=== PATIENT | female | born 1950 | race Caucasian/White ===

== ENCOUNTER 2016-12-06 07:03 | Observation (INO) | payer OTHER ==
[~2016-12-06] VITALS: Ht 162.6 cm; Wt 82.6 kg
[2016-12-06] MEDS ORDERED: ASPIRIN 324 MG CHEW PO STA (07:11)
[2016-12-06] MEDS ORDERED: LORAZEPAM 2 MG/ML 1 ML VIAL IV STA (07:11)
[2016-12-06] MEDS ORDERED: SODIUM CHLORIDE 0.9% 1000ML 1,000 ML IV STA (07:16)
[2016-12-06] MEDS ORDERED: NovoLIN-R INSULIN PER UNIT CHARGE IV STA (07:16)
--- NOTE | 2016-12-06 07:24 | EMERGENCY ROOM VISIT NOTE ---
History Report prepared by All: Lukas Martinez Under the Supervision of: Dr. Tarik Mc M.D. First contact with patient: 07:04 Stated Complaint: ANXIETY History of Present Illness The patient is a 66 year old female who presents to the Emergency Room with an acute anxiety attack that started at approximately 0530 this morning. The patient was on a bus from [place] to [place] when the patient became severely anxious. She notes that she had crushing chest pain starting at 0533. She has also been feeling nauseous. The patient was in [place] for her grandson's elementary school graduation. Her daughter reportedly told her not to come to the graduation. The patient also notes that her son Thomas is in [facility]. The patient's daughter allegedly put out a missing person's report on her. The patient has been anxious before. She is also medicated for depression. The patient has a history of suicidal ideations but denies them currently. The patient was admitted as an inpatient after buying a gun with the intent to end her own life three months ago. She denies history of heart attack. The patient is diabetic and notes that her BSG usually runs in the 400-500 range. Source of History: patient Onset: 0530 approximately Position: other (global) Quality: other (anxiety attack) Timing: other (acute) Associated Symptoms: + chest pain, + nausea Review of Systems See HPI for pertinent positives & negatives. A total of 10 systems reviewed and were otherwise negative. Current/Historical Medications Scheduled Aspirin (Aspir-81), 1 TAB PO DAILY Citalopram Hydrobromide (Celexa), 10 MG PO DAILY Glipizide (Glucotrol), 10 MG PO BID Insulin Detemir (Levemir), 70 UNITS SQ BID Lisinopril (Zestril), 10 MG PO DAILY Ranitidine HCl (Ranitidine [address]), 1 TAB PO BID Allergies Coded Allergies: No Known Allergies (Unverified , 12/06/16) Physical Exam Vital Signs Date Time Temp Pulse Resp B/P Pulse Ox O2 Delivery O2 Flow Rate FiO2 12/06/16 09:06 81 18 124/73 93 Room Air 12/06/16 08:03 85 20 122/66 97 Room Air 12/06/16 07:54 80 12/06/16 07:42 82 20 163/83 96 Room Air 12/06/16 07:12 37.0 79 24 157/112 94 Room Air 12/06/16 07:12 94 Room Air 12/06/16 07:12 94 Room Air Physical Exam GENERAL: Patient is severely anxious-appearing, sobbing uncontrollably. HEENT: No acute trauma, normocephalic atraumatic, mucous membranes moist, no nasal congestion, no scleral icterus. NECK: No stridor, no adenopathy, no meningismus, trachea is midline. LUNGS: No dyspnea. Clear to auscultation and equal bilaterally. No wheeze, no rhonchi. HEART: Regular rate and rhythm. No murmurs, rubs, gallops appreciated. ABDOMEN: Soft, nontender, bowel sounds positive, no masses appreciated, no peritonitis. BACK: No midline tenderness, no CVA tenderness EXTREMITIES: Normal motion all extremities, no cyanosis, no edema. NEUROLOGIC: Alert and oriented, no acute motor or sensory deficits, no focal weakness, cranial nerves grossly intact. SKIN: No jaundice, no diaphoresis. Small areas of sores all over the lower abdomen. PSYCH: Admits depression, admits to previous suicidal ideations without current ideations or plan. Medical Decision & Procedures Laboratory Results 12/06/16 07:25 Red Blood Count 4.31, Mean Corpuscular Volume 94.4, Mean Corpuscular Hemoglobin 31.6, Mean Corpuscular Hemoglobin Concent 33.4, Mean Platelet Volume 11.9, Neutrophils (%) (Auto) 61.8, Lymphocytes (%) (Auto) 29.3, Monocytes (%) (Auto) 7.4, Eosinophils (%) (Auto) 1.1, Basophils (%) (Auto) 0.2, Neutrophils # (Auto) 2.91, Lymphocytes # (Auto) 1.38, Monocytes # (Auto) 0.35, Eosinophils # (Auto) 0.05, Basophils # (Auto) 0.01 12/06/16 07:25 Test 12/06/16 07:25 12/06/16 07:34 White Blood Count 4.71 K/uL (4.8-10.8) Red Blood Count 4.31 M/uL (4.2-5.4) Hemoglobin 13.6 g/dL (12.0-16.0) Hematocrit 40.7 % (37-47) Mean Corpuscular Volume 94.4 fL (80-100) Mean Corpuscular Hemoglobin 31.6 pg (25-34) Mean Corpuscular Hemoglobin Concent 33.4 g/dl (32-36) Platelet Count 148 K/uL (130-400) Mean Platelet Volume 11.9 fL (7.4-10.4) Neutrophils (%) (Auto) 61.8 % Lymphocytes (%) (Auto) 29.3 % Monocytes (%) (Auto) 7.4 % Eosinophils (%) (Auto) 1.1 % Basophils (%) (Auto) 0.2 % Neutrophils # (Auto) 2.91 K/uL (1.4-6.5) Lymphocytes # (Auto) 1.38 K/uL (1.2-3.4) Monocytes # (Auto) 0.35 K/uL (0.11-0.59) Eosinophils # (Auto) 0.05 K/uL (0-0.5) Basophils # (Auto) 0.01 K/uL (0-0.2) RDW Standard Deviation 45.8 fL (36.4-46.3) RDW Coefficient of Variation 13.2 % (11.5-14.5) Immature Granulocyte % (Auto) 0.2 % Immature Granulocyte # (Auto) 0.01 K/uL (0.00-0.02) Prothrombin Time 10.0 SECONDS (9.0-12.0) Prothromb Time International Ratio 0.9 (0.9-1.1) Activated Partial Thromboplast Time 27.4 SECONDS (21.0-31.0) Partial Thromboplastin Ratio 1.1 Anion Gap 6.0 mmol/L (3-11) Est Creatinine Clear Calc Drug Dose 73.9 ml/min Estimated GFR () 90.3 Estimated GFR (Non- 77.9 BUN/Creatinine Ratio 20.4 (10-20) Estimated Average Glucose 263 mg/dl Hemoglobin A1c 10.8 % (4.5-5.6) Calcium Level 9.1 mg/dl (8.5-10.1) Total Bilirubin 0.4 mg/dl (0.2-1) Aspartate Amino Transf (AST/SGOT) 10 U/L (15-37) Alanine Aminotransferase (ALT/SGPT) 24 U/L (12-78) Alkaline Phosphatase 154 U/L (45-117) Total Creatine Kinase 84 U/L (26-192) Creatine Kinase MB 1.7 ng/ml (0.5-3.6) Creatine Kinase MB Ratio 2.0 (0-3.0) Total Protein 7.4 gm/dl (6.4-8.2) Albumin 3.6 gm/dl (3.4-5.0) Globulin 3.8 gm/dl (2.5-4.0) Albumin/Globulin Ratio 0.9 (0.9-2) Triglycerides Level 160 mg/dl (0-150) Cholesterol Level 102 mg/dl (0-200) HDL Cholesterol 51 mg/dl LDL Cholesterol, Calculated 19 mg/dl VLDL Cholesterol, Calculated 32 mg/dl Cholesterol/HDL Ratio 2.0 Beta-Hydroxybutyric Acid 0.93 mg/dL (0.2-2.81) Thyroid Stimulating Hormone (TSH) 0.396 uIu/ml (0.300-4.500) Salicylates Level < 1.7 mg/dl (2.8-20) Acetaminophen Level < 2 ug/ml (10-30) Ethyl Alcohol mg/dL < 3.0 mg/dl (0-3) Urine Color YELLOW Urine Appearance CLEAR (CLEAR) Urine pH 5.0 (4.5-7.5) Urine Specific [place] 1.043 (1.000-1.030) Urine Protein NEG (NEG) Urine Glucose (UA) 3+ (NEG) Urine Ketones NEG (NEG) Urine Occult Blood NEG (NEG) Urine Nitrite NEG (NEG) Urine Bilirubin NEG (NEG) Urine Urobilinogen NEG (NEG) Urine Leukocyte Esterase NEG (NEG) Urine WBC (Auto) 5-10 /hpf (0-5) Urine RBC (Auto) 0-4 /hpf (0-4) Urine Hyaline Casts (Auto) 1-5 /lpf (0-5) Urine Epithelial Cells (Auto) 20-30 /lpf (0-5) Urine Bacteria (Auto) 1+ (NEG) Urine Opiates Screen NEG (NEG) Urine Methadone, Qualitative NEG (NEG) Urine Barbiturates NEG (NEG) Urine Phencyclidine (PCP) Level NEG (NEG) Ur Amphetamine/Methamphetamine NEG (NEG) MDMA (Ecstasy) Screen NEG (NEG) Urine Benzodiazepines Screen NEG (NEG) Urine Cocaine Metabolite NEG (NEG) Urine Marijuana (THC) NEG (NEG) Laboratory results as reviewed by me. Medications Administered Medications (Trade) Dose Ordered Sig/Dione Route Start Time Stop Time Status Last Admin Dose Admin Lorazepam (Ativan Inj) 1 mg NOW STAT IV 12/06/16 07:11 12/06/16 07:13 DC 12/06/16 07:40 1 MG Aspirin 324 mg 324 mg NOW STAT PO 12/06/16 07:11 12/06/16 07:13 DC 12/06/16 07:38 324 MG Sodium Chloride (Nss 1000ml) 1,000 ml @ 999 mls/hr Q1H1M STAT IV 12/06/16 07:16 12/06/16 08:16 DC 12/06/16 07:32 999 MLS/HR Insulin Human Regular (novoLIN-R U-100 PER UNIT) 10 units NOW STAT IV 12/06/16 07:16 12/06/16 07:17 DC 12/06/16 07:39 10 UNITS ECG Indication: chest pain Rate (beats per minute): 93 Rhythm: normal sinus Findings: no acute ischemic change, no ectopy ED Course 0710: The patient was evaluated in room B11b. A complete history and physical exam was performed. 0711: Aspirin 324 mg PO, Ativan 1 mg IV. 0716: Insulin Human Regular 10 units IV, NSS 1000 ml @ 999 mls/hr. 0820: The patient is sleeping in no further discomfort. 0900: The patient is still sleeping comfortably. 0910: The patient is now concerned that she may harm herself but she does not have a plan. She wants to be admitted to a psych facility. She denies any chest pain at this time. 0920: Discussed the case with Dr. Plummer, [facility] Hospitalist. The patient will be evaluated. Medical Decision Differential: Mood Disorder, Overdose, Infectious, Electrolyte Abnormality, Cardiac, Hepatic, Endocrine, Toxicologic, Neurologic, amongst other pathologies entertained. 66 yr old female unknown to this facility as she was on bus passing through on was from [place] to [place]. She is sobbing uncontrollably talking about not being allowed to see her grandchildren and her son being in half-way for child molestation. She initially denies suicidal ideation, though admits severe depression, previous suicide attempts and recent hospitalization. On arrival complaining of severe substernal chest pressure. EKG unremarkable. Trop negative. Patient given ativan/asa with resolution of pain. Also with resolution of crying. Fell asleep though easily awoken on multiple times. She on repeat evaluation noting she wishes to be evaluated by mental health. She admits she may have suicidal thoughts without plan currently. With Chest pain, hyperglycemia, and vague suicidal thoughts, especially given her arrival symptoms and fact she has no local physician, is traveling and no family help, she should be brought in for further evaluation and treatment. Consults Time Called: [phone] Consulting Physician: Dr. Plummer [facility] Hospitalist Returned Call: [phone] The patient will be evaluated. Impression Primary Impression: Substernal precordial chest pain Additional Impressions: Depression Suicidal ideation Anxiety Scribe Attestation The scribe's documentation has been prepared under my direction and personally reviewed by me in its entirety. I confirm that the note above accurately reflects all work, treatment, procedures, and medical decision making performed by me. Departure Information Dispostion Being Evaluated By Hospitalist Problem Qualifiers Additional Impressions: Depression Depression Type: major depressive disorder Major depression recurrence: recurrent Active/Remission status: currently active Major depression episode severity: severe Psychotic features: without psychotic features Qualified Codes: F33.2 - Major depressive disorder, recurrent severe without psychotic features
[2016-12-06] MEDS ORDERED: ASPI-232 PO (07:48)
[2016-12-06] MEDS ORDERED: GLIP10TA9 PO (07:48)
[2016-12-06] MEDS ORDERED: LVMI SQ (07:48)
[2016-12-06] MEDS ORDERED: RANI1TAB77 PO (07:48)
[2016-12-06] MEDS ORDERED: LISI-791 PO (07:48)
[2016-12-06] MEDS ORDERED: CITA10TA8 PO (07:48)
[2016-12-06 07:55] LABS: URINE APPEARANCE CLEAR (CLEAR); URINE BILIRUBIN NEG (NEG); URINE COLOR YELLOW; URINE EPITHELIAL CELL AUTO 20-30 /lpf (0-5); URINE NITRITE NEG (NEG); URINE SPECIFIC GRAVITY 1.043 (1.000-1.030); UROBILINOGEN NEG (NEG); ZZUR CULT IF INDIC CLEAN CATCH YES
[2016-12-06 07:56] LABS: MANUAL MICROSCOPIC REQUIRED? NO; REVIEW REQ? NO
[2016-12-06 08:08] LABS: BASO % 0.2 %; BASO ABS # 0.01 K/uL (0-0.2); COMPLETE YES; EOS % 1.1 %; HEMATOCRIT 40.7 % (37-47); IG% 0.2 %; LYMPH % 29.3 %; LYMPH ABS # 1.38 K/uL (1.2-3.4); MEAN CELL VOLUME 94.4 fL (80-100); MEAN CORPUSCULAR HEMOGLOBIN 31.6 pg (25-34); MEAN CORPUSCULAR HGB CONC 33.4 g/dl (32-36); MEAN PLATELET VOLUME 11.9 fL (7.4-10.4); MONO % 7.4 %; NEUT % 61.8 %; PLATELET COUNT 148 K/uL (130-400); RED BLOOD COUNT 4.31 M/uL (4.2-5.4); WHITE BLOOD COUNT 4.71 K/uL (4.8-10.8)
[2016-12-06 08:14] LABS: BENZODIAZEPINE, URINE NEG (NEG); COCAINE,URINE NEG (NEG); PHENCYCLIDINE, URINE NEG (NEG)
[2016-12-06 08:43] LABS: ALT/SGPT 24 U/L (12-78); AST/SGOT 10 U/L (15-37); BLOOD UREA NITROGEN 16 mg/dl (7-18); BUN/CREATININE RATIO 20.4 (10-20); CALCIUM 9.1 mg/dl (8.5-10.1); CARBON DIOXIDE 29 mmol/L (21-32); CHLORIDE 104 mmol/L (98-107); GLUCOSE 474 mg/dl (70-99); POTASSIUM 4.1 mmol/L (3.5-5.1); SODIUM 139 mmol/L (136-145)
[2016-12-06 08:45] LABS: ACETAMINOPHEN < 2 ug/ml (10-30)
[2016-12-06 08:51] LABS: ALB/GLOB RATIO 0.9 (0.9-2); ALKALINE PHOSPHATASE 154 U/L (45-117)
[2016-12-06 09:02] LABS: BETA-HYDROXYBUTYRATE 0.93 mg/dL (0.2-2.81); THYROID STIMULATING HORMONE 0.396 uIu/ml (0.300-4.500)
[2016-12-06] MEDS ORDERED: MAGNESIUM HYDROXIDE SUSP 30 ML UDC PO PRN (09:45)
[2016-12-06] MEDS ORDERED: ONDANSETRON INJ 2 MG/ML 2 ML VIAL IV PRN (09:45)
[2016-12-06] MEDS ORDERED: NITROGLYCERIN 0.4 MG SL PER TAB CHARGE SL PRN (09:45)
[2016-12-06] MEDS ORDERED: ACETAMINOPHEN 325 MG TAB PO PRN (09:45)
--- NOTE | 2016-12-06 10:08 | History and Physical ---
History & Physical Date & Time of Service: December 06, 2016 at 09:44 Chief Complaint: Anxiety Primary Care Physician: No Doctor, Assigned History of Present Illness Source: hospital records 66 y/o F who was apparently brought here via a bus that she was traveling on from [place] to [place] after she complained of chest pain around 5:30am. I am not able to keep pt awake long enough to get more than brief answers from her after being given ativan, so most of the information is from the ED physician. Pt apparently has been under severe stress due to a son who is in [facility]. She went to [place] for her grandson's elementary school graduation. This morning she had an anxiety attack while riding on the bus and then started having chest pain that gradual worsened. Pt is unclear as to whether she is still having chest pain or whether she had chest pain yesterday. She does not answer when asked if there was SOB. She ate yesterday. She had nausea last night, but unclear if she had nausea today. She took her insulin yesterday, but cannot tell me when or what dose. She apparently told the ED physician that her BS are usually 400- 500. Pt apparently requested a psych eval to the ED staff. They reported that she told them that she purchased a gun 3 months ago to end her life and was subsequently admitted for psych care for this. When I asked her if she felt like harming herself recently, she did not answer and I could not rouse her further. Per records: ROS otherwise neg, but I could not obtain this myself. Past Medical/Surgical History Per ED list: DM Depression HTN GERD Hx of recent SI with hospitalization for psych care Social History Smoking Status: Never Smoker Alcohol Use: occasionally (rarely) Drug Use: none Allergies Coded Allergies: No Known Allergies (Unverified , 12/06/16) Home Medications Scheduled Aspirin (Aspir-81), 1 TAB PO DAILY Citalopram Hydrobromide (Celexa), 10 MG PO DAILY Glipizide (Glucotrol), 10 MG PO BID Insulin Detemir (Levemir), 70 UNITS SQ BID Lisinopril (Zestril), 10 MG PO DAILY Ranitidine HCl (Ranitidine [address]), 1 TAB PO BID Physical Exam Vital Signs Date Time Temp Pulse Resp B/P Pulse Ox O2 Delivery O2 Flow Rate FiO2 12/06/16 09:06 81 18 124/73 93 Room Air 12/06/16 08:03 85 20 122/66 97 Room Air 12/06/16 07:54 80 12/06/16 07:42 82 20 163/83 96 Room Air 12/06/16 07:12 37.0 79 24 157/112 94 Room Air 12/06/16 07:12 94 Room Air 12/06/16 07:12 94 Room Air General Appearance: WD/WN, no apparent distress Head: normocephalic, atraumatic Respiratory/Chest: normal breath sounds, no respiratory distress Cardiovascular: regular rate, rhythm, no edema Abdomen/GI: non tender, soft Extremities/Musculoskelatal: no calf tenderness, no pedal edema Neurologic/Psych: + pertinent finding (Pt is barely rousable with physical stimulus, but does not stay awake for long, answers yes/no questions) Skin: normal color, warm/dry Diagnostics Laboratory Results Results Past 24 Hours Test 12/06/16 07:13 12/06/16 07:25 12/06/16 07:34 12/06/16 08:29 Range/Units Bedside Glucose 486 287 70-90 mg/dl White Blood Count 4.71 4.8-10.8 K/uL Red Blood Count 4.31 4.2-5.4 M/uL Hemoglobin 13.6 12.0-16.0 g/dL Hematocrit 40.7 37-47 % Mean Corpuscular Volume 94.4 80-100 fL Mean Corpuscular Hemoglobin 31.6 25-34 pg Mean Corpuscular Hemoglobin Concent 33.4 32-36 g/dl Platelet Count 148 130-400 K/uL Mean Platelet Volume 11.9 7.4-10.4 fL Neutrophils (%) (Auto) 61.8 % Lymphocytes (%) (Auto) 29.3 % Monocytes (%) (Auto) 7.4 % Eosinophils (%) (Auto) 1.1 % Basophils (%) (Auto) 0.2 % Neutrophils # (Auto) 2.91 1.4-6.5 K/uL Lymphocytes # (Auto) 1.38 1.2-3.4 K/uL Monocytes # (Auto) 0.35 0.11-0.59 K/uL Eosinophils # (Auto) 0.05 0-0.5 K/uL Basophils # (Auto) 0.01 0-0.2 K/uL RDW Standard Deviation 45.8 36.4-46.3 fL RDW Coefficient of Variation 13.2 11.5-14.5 % Immature Granulocyte % (Auto) 0.2 % Immature Granulocyte # (Auto) 0.01 0.00-0.02 K/uL Sodium Level 139 136-145 mmol/L Potassium Level 4.1 3.5-5.1 mmol/L Chloride Level 104 98-107 mmol/L Carbon Dioxide Level 29 21-32 mmol/L Anion Gap 6.0 3-11 mmol/L Blood Urea Nitrogen 16 7-18 mg/dl Creatinine 0.80 0.60-1.20 mg/dl Est Creatinine Clear Calc Drug Dose 73.9 ml/min Estimated GFR () 90.3 Estimated GFR (Non- 77.9 BUN/Creatinine Ratio 20.4 10-20 Random Glucose 474 70-99 mg/dl Calcium Level 9.1 8.5-10.1 mg/dl Total Bilirubin 0.4 0.2-1 mg/dl Aspartate Amino Transf (AST/SGOT) 10 15-37 U/L Alanine Aminotransferase (ALT/SGPT) 24 12-78 U/L Alkaline Phosphatase 154 45-117 U/L Total Creatine Kinase 84 26-192 U/L Creatine Kinase MB 1.7 0.5-3.6 ng/ml Creatine Kinase MB Ratio 2.0 0-3.0 Troponin I < 0.015 0-0.045 ng/ml Total Protein 7.4 6.4-8.2 gm/dl Albumin 3.6 3.4-5.0 gm/dl Globulin 3.8 2.5-4.0 gm/dl Albumin/Globulin Ratio 0.9 0.9-2 Beta-Hydroxybutyric Acid 0.93 0.2-2.81 mg/dL Thyroid Stimulating Hormone (TSH) 0.396 0.300-4.500 uIu/ml Salicylates Level < 1.7 2.8-20 mg/dl Acetaminophen Level < 2 10-30 ug/ml Ethyl Alcohol mg/dL < 3.0 0-3 mg/dl Urine Color YELLOW Urine Appearance CLEAR CLEAR Urine pH 5.0 4.5-7.5 Urine Specific [place] 1.043 1.000-1.030 Urine Protein NEG NEG Urine Glucose (UA) 3+ NEG Urine Ketones NEG NEG Urine Occult Blood NEG NEG Urine Nitrite NEG NEG Urine Bilirubin NEG NEG Urine Urobilinogen NEG NEG Urine Leukocyte Esterase NEG NEG Urine WBC (Auto) 5-10 0-5 /hpf Urine RBC (Auto) 0-4 0-4 /hpf Urine Hyaline Casts (Auto) 1-5 0-5 /lpf Urine Epithelial Cells (Auto) 20-30 0-5 /lpf Urine Bacteria (Auto) 1+ NEG Urine Opiates Screen NEG NEG Urine Methadone, Qualitative NEG NEG Urine Barbiturates NEG NEG Urine Phencyclidine (PCP) Level NEG NEG Ur Amphetamine/Methamphetamine NEG NEG MDMA (Ecstasy) Screen NEG NEG Urine Benzodiazepines Screen NEG NEG Urine Cocaine Metabolite NEG NEG Urine Marijuana (THC) NEG NEG Microbiology Results 12/06/16 Urine Culture, Received Pending Impression Assessment and Plan 66 y/o F who was admitted for observation on 12/06 for chest pain and SI. Chest pain: Likely stress/anxiety related but pt with hx of uncontrolled DM, will need to r/o ACS Trop neg x1, serials pending No EKG changes PRP, CBC, TSH WNL Utox and UA neg with urine cx pending CXR not done in the ED, no s/sx concerning for PNA or fluid overload and unlikely that pt will awaken to participate. Can order later if a concern Nitro PRN DM: Poor control, was given insulin in the ED for hyperglycemia Neg for electrolyte abn, will hold on insulin drip/DKA protocol for now Home meds as per EMR once taking PO, pt could not confirm this to me SSI PRN IVF HTN: Stable, continue home meds Anxiety/depression/SI: pt appears oversedated s/p single dose of ativan in the ED, will hold on further Apparently requested psych eval to ED staff, c/s pending Recent hx of hospitalization for SI Continue celexa Other: Unable to discuss code status with pt NPO with IVF for now given current sedation, DM diet once more awake Heparin for DVT proph Level of Care Telemetry VTE Prophylaxis VTE Risk Assessment Done? Y/N: Yes Risk Level: Low
[2016-12-06 10:42] LABS: ESTIMATED AVERAGE GLUCOSE 263 mg/dl; HA1C FLAG Normal (Normal)
[2016-12-06 11:26] VITALS: BP 131/67; TEMP 37; O2SAT 94; BMI 31.3
[2016-12-06] MEDS ORDERED: GLUCAGON FOR INJ 1 MG VIAL SQ PRN (12:15)
[2016-12-06] MEDS ORDERED: GLUCOSE 40% GEL 15 GM TUBE PO PRN (12:15)
[2016-12-06] MEDS ORDERED: DEXTROSE 50% 50 ML SYR IV PRN (12:15)
[2016-12-06] MEDS ORDERED: GLUCOSE 10 TABS/TUBE PO PRN (12:15)
[2016-12-06 12:39] LABS: INR 0.9 (0.9-1.1); PARTIAL THROMBOPLASTIN RATIO 1.1
[2016-12-06] MEDS: SODIUM CHLORIDE 0.9% 1000ML 1,000 ML IV SCH (13:01)
[2016-12-06] MEDS: INSULIN ASPART 100 UNITS/ML 3 ML PEN SC SCH ×3 (13:14→21:28)
[2016-12-06] MEDS ORDERED: IV FLUIDS COMPLETED PRN (14:00)
[2016-12-06 14:51] VITALS: BP 149/81; PULSE 79; TEMP 36.7; O2SAT 96
[2016-12-06 16:00] VITALS: O2SAT 96
--- NOTE | 2016-12-06 18:58 | Psychiatric Consultation ---
Psychiatric Consultation Date of Service: December 06, 2016. Pt having acute anxiety and attempted to see pt for psych consult pt sound asleep after having acute anxiety and will try to see pt again in morning, opposed to awakening her since just had severe acute anxiety spoke to psych nurse liaison who summarized pt's presentation and to floor nurse who reviewed the acute anxiety presentation, nurse stated that pt stated was hallucinating, pt went to write it down then stopped and then went to sleep. pt was quite sedated from 1 mg of IM ativan while in ER. ordered vistaril 25mg q6 hour for anxiety if acute severe anxiety flares back up with behavioral management to be attempted first. will attempt to see again in morning
[2016-12-06] MEDS ORDERED: hydrOXYzine HCL 25 MG TAB PO PRN (19:00)
[2016-12-06 19:50] VITALS: BP 144/85; PULSE 77; TEMP 37; O2SAT 94
[2016-12-06] MEDS ORDERED: INSULIN DETEMIR 70 UNIT SQ SCH (21:00)
[2016-12-06] MEDS: RANITIDINE HCL 150 MG TAB PO SCH (21:29)
[2016-12-06] MEDS: HEPARIN SOD 5000 UNIT/0.5 ML CARP SQ SCH (21:29)
[2016-12-07] VITALS (8 sets, daily range): BP systolic 124–152; BP diastolic 74–90; PULSE 66–88; TEMP 36.3–36.9; O2SAT 93–98
[2016-12-07] MEDS: SODIUM CHLORIDE 0.9% 1000ML 1,000 ML IV SCH ×2 (01:29→15:58)
[2016-12-07] MEDS ORDERED: NURSING VERBAL MED ORDER ONE (02:00)
[2016-12-07] MEDS: INSULIN ASPART 100 UNITS/ML 3 ML PEN SC SCH ×6 (02:48→21:55)
[2016-12-07] MEDS: RANITIDINE HCL 150 MG TAB PO SCH ×2 (08:15→17:55)
[2016-12-07] MEDS: CITALOPRAM 20 MG TAB PO SCH (08:15)
[2016-12-07] MEDS: LISINOPRIL 10 MG TAB PO SCH (08:15)
[2016-12-07] MEDS: ASPIRIN 81 MG ECTAB PO SCH (08:16)
[2016-12-07] MEDS: HEPARIN SOD 5000 UNIT/0.5 ML CARP SQ SCH ×2 (08:16→21:00)
[2016-12-07] MEDS ORDERED: INSULIN GLARGINE SOLOSTAR 100 UNITS/ML 3 ML PEN SC ONE ×3 (09:01→21:00)
--- NOTE | 2016-12-07 10:22 | Psychiatric Consultation ---
Consultation Date of Consultation December 07, 2016. Identifying Data Valentina Sanchez is a 66-year-old female who currently lives in [] [alone] with []. Valentina Sanchez was admitted on a [201 voluntary] [302 involuntary] commitment. Patient is admitted from [home] [transfer from the medical floor]. The patient was brought to the ED by the [police] [family] [ambulance] [self transport]. Information provided by the patient is considered to be [reliable] [unreliable]. Chief Complaint "I can't take it anymore". History of Present Illness Valentina was admitted medically for chest pain as was travelling from [place] to [place] after visiting her estrangled son for his graduation. She has DM that is uncontrolled and HTN She reports h/o depressive disorder with treatment with celexa at either 10mg or 20mg a day. She has been rx'd it for years per pt but has varied in her compliance of taking it per pt report. However since July 2016 she has taken it most day, but not always. She has had a psychiatric admission around [facility] (October 2016) at her local [facility] in [place]. She reprots seeing a therapist weekly and appears to have a psychiatric provider rx her Celexa but she cannot recall the name of the outpt provider, stating the name she provided was her recent inpt provider. Her hospitalization in October 2016 was for SI per pt. She had been having SI rather significantly in the past few months and had bought a gun about 3 month ago with intention to kill herself. She denied having access to a gun now [facility] from her access. She endorsed a number of past suicide attempts in the past including walking into the traffic (not in recent past). She is agitated, labile in mood and affect. Her thought process and behaviors are disorganized. She is distressed over founding out the other day that her son is going to detention for 10-12 years over a sexual assault charge, per pt. She had not previously spoke ot he son in about 2 years. This morning she called 911 from her hospital room with her stating she wanted to address and better understand these charges. Pt is circumstantial and tangential in her thought process. She describes seeing people she know by her bedside since being admitted. She has a grandiose aspects to her present and some pressured speech. She denied having h/ o bipolar or psychotic presentations. She states she was tested for schizophrenia but told she doesn ot have that and that she passed psychological testing that took a number of hours with "flying colors" besides struggling some when angry. Pt denied HI. She denied AH. She denied paranoid thinking. Pt's blood sugar was quite elevated at admission and only gradually improving so far in her medical admission. She is open to and interested in a psychiatric admission with desire to be at [facility] unit. She has a wish to but denied plans or intent to act on such thoughts. After assessment completed she reported calling the [facility] in [place] and being told by a Re (TARAN) that she can get admitted there but not till Thursday per pt. Pt plans to call a "back door number" to the [facility] to clarify her celexa med dose. Past Psychiatric History Current OP Treatment: psychiatrist, therapist Prior OP Treatment: psychiatrist Prior Psych Hospitalizations: other ([facility] in - october 2016, total of about 7 admissions per pt ) Access to a Gun: No Suicide Attempts: Yes Past Medical/Surgical History History of Concussion/Seizure: Yes (1 Concussion years ago ) Allergies Allergies: Coded Allergies: No Known Allergies (Unverified , 12/06/16) Home Medications Scheduled Aspirin (Aspir-81), 1 TAB PO DAILY Citalopram Hydrobromide (Celexa), 10 MG PO DAILY Glipizide (Glucotrol), 10 MG PO BID Insulin Detemir (Levemir), 70 UNITS SQ BID Lisinopril (Zestril), 10 MG PO DAILY Ranitidine HCl (Ranitidine [address]), 1 TAB PO BID Family History History of Suicide: No History of Substance Abuse: No Psychiatric History: No Alcohol Use Alcohol Use In Past 12 Months: No Smoking Use Smoking Status: Never Smoker Personal History Lives in: [facility] Work History: retired on social security, not working Children: estranged from children Spiritual Affiliation: Moravian Additional Comments: [employer] Examination Vital Signs Vital Signs Past 12 Hours Date Time Temp Pulse Resp B/P Pulse Ox O2 Delivery O2 Flow Rate FiO2 12/07/16 07:11 36.9 76 20 152/90 98 Room Air 135/84 12/07/16 04:44 36.6 66 18 128/78 96 Room Air 12/07/16 04:00 Room Air 12/07/16 00:16 36.6 72 18 138/76 93 Room Air 12/07/16 00:00 Room Air Laboratory Results Last 24 Hours Test 12/06/16 10:16 12/06/16 12:46 12/06/16 13:05 12/06/16 16:52 Bedside Glucose 268 mg/dl 267 mg/dl 329 mg/dl Troponin I < 0.015 ng/ml Test 12/06/16 19:00 12/06/16 20:27 12/07/16 01:39 12/07/16 07:25 Troponin I < 0.015 ng/ml Bedside Glucose 284 mg/dl 343 mg/dl 203 mg/dl Mental Examination During interview pt is: alert and oriented (date of month off by one day), other (mildly cooeprative but frustrated by publicity writer's questions) Appearance: other (hospital gown) Eye contact is: poor Motor behavior is: no abnormal motor movements (laying in hospital bed), other Speech: is pressured Affect: labile, irritable Mood is: irritable, angry, other (labile) Thought process: circumstantial, tangential Thought content: preoccupation, cognitive distortions Suicidal thought are: present, Plan: denied, Intent: denied Homicidal thoughts are: denied Hallucinations: visual, denies auditory Cognition: other (attention and concentration impaired) Intelligence estimated to be: average Insight: impaired Judgement: impaired Impression / Recommendations Impression Reported Depression Disorder and h/o psych admissions last October 2016 At [facility] in [place] with labile mood, pressured speech, SI but without plan, struggling with psychosocial stressors of finding out son huerta legal charges and facing 10-12 years in residential per pt over a sexual assault charge. Pt makes suicidal comments including showing dress bought last week to be buried in. with also having disorganized behavior and thinking. Endorsed V[facility]. h/o suicidal behaviors DM not in controlled, admitted for CP. pt open to inpt psych care at [facility] on celexa Risk Factors Assessment : Yes Access to guns: No Substance use disorders: No Previous attempt: Yes Previous psychiatric stay: Yes Hopelessness: Yes Smoker: No Protective Factors Assessment Quaker beliefs: Yes Responsible for young children: No Supportive family: No Recommendations (1) Depression continue celexa 10mg a day for now exploring for mixed presentation so raising dosage might activate pt further vistaril 25mg prn 6 hours for anxiety/insomnia aim for inpt psych admission once medically cleared , [facility] (2) Suicidal ideation aim for psych admission once medically cleared attempting to be [facility] hospital based 1:1 sitter have nursing and security present with pt as go through belongings
--- NOTE | 2016-12-07 12:16 | DIAGNOSTIC IMAGING REPORT ---
CHEST 2 VIEWS ROUTINE CLINICAL HISTORY: Chest pain. COMPARISON STUDY: No previous studies for comparison. FINDINGS: There are cholecystectomy clips. Lung volumes are normal. There is no pneumothorax or pleural effusion. There is no evidence of pulmonary edema. Cardiac size is normal. Mediastinal contours are normal. There is a 1.6 cm nodular opacity within the right upper lung. IMPRESSION: 1. No acute cardiopulmonary findings. 2. 1.6 cm nodular right upper lung opacity. This is probably artifactual although a pulmonary nodule or minimal airspace disease could appear similar. A chest CT is recommended. Electronically signed by: Alonso aGrza M.D. 12/07/2016 12:15 PM Dictated Date/Time: 12/07/2016 12:03 PM
[2016-12-07] MEDS ORDERED: OPTIRAY 320 IV PRN (13:00)
[2016-12-07] MEDS ORDERED: PHARMACY GLYCEMIC MGMT CONSULT PRN (13:14)
--- NOTE | 2016-12-07 13:55 | Pharmacy Progress Note ---
Glycemic Control Intl Consult Date of Service December 07, 2016. Scope Glycemic Pharmacist consulted by Dr Caldwell on 12/07/16 for glycemic control and to write orders per [facility] inpatient glycemic control protocol Objective Weight (Kilograms): 82.400 Accuchecks BSG (last 24hrs): Test 12/06/16 16:52 12/06/16 20:27 12/07/16 01:39 12/07/16 07:25 Bedside Glucose 329 mg/dl (70-90) 284 mg/dl (70-90) 343 mg/dl (70-90) 203 mg/dl (70-90) Test 12/07/16 11:41 Bedside Glucose 362 mg/dl (70-90) HbA1c Test 12/06/16 07:25 Hemoglobin A1c 10.8 % (4.5-5.6) H Recent Pertinent Medications Outpatient Anti-diabetic Regimen: (unable to confirm) * Levemir 70 units SQ BID * Glipizide 10mg PO BIDM The patient is currently receiving: * Basal insulin: Lantus 10 units every 24 hours given in the morning * Correctional Insulin: Novolog Correction per scale ACHS Goal Range: Low 120 mg/dL - High 140 mg/dL Correction Factor: 30 mg/dL/unit * Prandial insulin: Per carb ratio of 1 unit per 9 grams CHO consumed * Oral Agents: On hold for admission Risk Factors for Insulin Resistance: * Baseline poor control * Stress * Diet Assessment & Plan ASSESSMENT: * 66yo T2DM with poor degree of outpatient control per A1c * Pt reports taking large doses of basal insulin + glipizide but unable to confirm if this is accurate. Referenced external med history and dr dumont without any results. * Unsure if A1c elevated secondary to inadequate dosing vs compliance * Do not feel comfortable resuming reported outpatient dosing at this time as this may induce hypoglycemia if pt non-compliant as an outpatient. * Will start with aggressive weight based SQ basal bolus insulin regimen and titrate based on BSG trends * ADA & AACE recommend a goal blood sugar range 140-180 mg/dl for the majority of critically ill & non-critically ill patients. However, more stringent targets may be selected in individual cases. Will utilize slightly more stringent goal range of 120-140mg/dl as ordered by provider based on age. PLAN FOR INPATIENT GLYCEMIC CONTROL: * Hold outpatient oral diabetes medications * Oral agents are not recommended for inpatient use d/t drug interactions, changing PO intake, and difficulty titrating for acute hyper/hypoglycemia. ADA recommends re-initiating outpatient oral agents 1-2 days prior to discharge if/ when appropriate if they were held on admission. * Basal insulin: per weight & st = 3 * Lantus 40 units SQ daily * Titrate dose daily to maintain fasting BSG in 100-130mg/dl range * of note, pt reports using 70 units BID as an outpatient so this may be underdosing patient initially. * Bolus insulin: parameters per wt & st =3 * NovoLog per scale ACHS or Q6hrs while NPO. Additional checks + coverage at 0000 & 0400 for severe hyperglycemia. Additional coverage may be needed if basal insulin dosing is underdosed. * Goal Range: Low 120 mg/dL - High 140 mg/dL * Correction Factor: 20 mg/dL/unit * Nutritional / Prandial insulin per carb ratio of 1 unit per 7 grams CHO consumed * Please note that the plan above was derived based on current level of insulin resistance and hospital stress. These recommendations are appropriate for inpatient admission only. Plan of care upon discharge will need to be reassessed to avoid potential outpatient hypo/hyperglycemia. Thank you.
--- NOTE | 2016-12-07 14:42 | DIAGNOSTIC IMAGING REPORT ---
CT OF THE CHEST WITH IV CONTRAST CLINICAL HISTORY: 1.6 cm nodule seen on CXR COMPARISON STUDY: Chest radiograph performed earlier today. TECHNIQUE: Following IV administration of 94 mL of Optiray-320, helical axial images of the chest were obtained. Images were viewed in the axial, sagittal and coronal planes. IV contrast was administered without complication. CT DOSE: 335.13 mGy.cm FINDINGS: No enlarged axillary, mediastinal or hilar lymph nodes are present. The size of the heart is normal. There is no pericardial effusion. Central airways are patent. There is no pneumothorax or pleural effusion. There are minimal scattered tree-in-bud nodules, most evident within the right lower lobe. There is an 8 mm irregular subpleural nodule within the right lower lobe which is shown on image 183 of 256. The possible lung nodule shown within the right upper lung on prior chest radiograph may be due to minimal tree-in-bud opacities or artifact. Bony thorax and upper abdomen are unremarkable. IMPRESSION: 1. Scattered minimal tree-in-bud nodular opacities within the lungs which favor a mild infectious bronchiolitis. No consolidation to suggest pneumonia. 2. 8 mm irregular subpleural opacity within the right lower lobe. This finding is indeterminate and this could reflect an irregular pulmonary nodule, minimal airspace disease or atelectasis. A follow-up chest CT in 3 months is recommended to ensure resolution. 3. The 1.6 cm nodular opacity shown on prior chest radiograph was likely artifactual or related to minimal tree-in-bud opacities. Electronically signed by: Alonso Garza M.D. 12/07/2016 2:40 PM Dictated Date/Time: 12/07/2016 2:32 PM
[2016-12-07] MEDS ORDERED: AZITHROMYCIN 250 MG TAB PO ONE (17:30)
--- NOTE | 2016-12-07 21:04 | Hospitalist Progress Note ---
Hospitalist Progress Note Date of Service December 07, 2016. Subjective Pt evaluation today including: conversation w/ patient Patient remains severely anxious today. She is very distraught over the fact that her son was convicted for sexual systolic child and is going to snf for 10 years. She is very emotional and tearful throughout the 3 times a day as visited with her today on separate occasions. She is continuing to have intermittent chest pressure that only comes on when she is anxious and tearful. A chest x-ray showed possible nodule and CT of the chest was ordered-results reviewed with her. She told the RN that she brought a dressed with her that is the dressed that she would like to be buried in. She also admits that she had bought a gun 3 months ago with which to kill herself but then "threw it away" and stated that "I'll have to use scuba divers to find it." I had security check all of her bags for safety reasons and put her on a one-to-one. Discussed the case with psychiatry. Patient is inquiring about transferred to the [facility] in [place] for psychiatric treatment. She continues to complain of intermittent chest pressure that comes on when she is tearful and anxious. She reports she had a cardiac catheterization many years ago that showed no blockages Constitutional: No fever Eyes: + worsening of vision ENT: No problem reported Respiratory: + cough (for the last few weeks) Cardiovascular: + chest pain (intermittent) Abdomen: No pain Psychiatric: + anxiety, + depression symptoms, + problem reported ( currently denies suicidal or homicidal ideations, but reports that she has thought about suicide many times in the past) All Other Systems: Reviewed and Negative Objective Vital Signs Date Time Temp Pulse Resp B/P Pulse Ox O2 Delivery O2 Flow Rate FiO2 12/07/16 19:21 36.3 87 18 150/74 97 Room Air 12/07/16 16:00 94 Room Air 12/07/16 15:30 36.3 88 20 124/78 94 Room Air 12/07/16 12:00 96 Room Air 12/07/16 11:14 36.9 69 22 130/78 96 Room Air 12/07/16 07:11 36.9 76 20 152/90 98 Room Air 135/84 12/07/16 04:44 36.6 66 18 128/78 96 Room Air 12/07/16 04:00 Room Air 12/07/16 00:16 36.6 72 18 138/76 93 Room Air 12/07/16 00:00 Room Air Physical Exam General Appearance: WD/WN, + obese, + pertinent finding (very anxious and crying on multiple occasions) Eyes: normal inspection, sclerae normal ENT: hearing grossly normal, pharynx normal Neck: trachea midline Respiratory/Chest: lungs clear, normal breath sounds, no respiratory distress, no accessory muscle use Cardiovascular: regular rate, rhythm, no edema, no gallop, no murmur Abdomen: normal bowel sounds, non tender, soft Extremities: non-tender, normal inspection, no pedal edema, no calf tenderness Neurologic/Psychiatric: alert, oriented x 3, + depressed affect, + pertinent finding (mood is labile, affect is full and appropriate, denies current suicidal or homicidal ideation) Skin: normal color, warm/dry, no rash Laboratory Results Last 24 Hours Test 12/07/16 01:39 12/07/16 07:25 12/07/16 11:41 12/07/16 16:04 Bedside Glucose 343 mg/dl 203 mg/dl 362 mg/dl 195 mg/dl Test 12/07/16 20:15 Bedside Glucose 268 mg/dl Assessment and Plan 66 y/o F who was admitted for observation on 12/06 for chest pain and SI. Chest pain: Likely stress/anxiety related but pt with hx of uncontrolled DM, will need to r/o ACS Trop neg x3 No evidence of ischemia on EKG PRP, CBC, TSH WNL Utox and UA neg with urine cx pending CXR with possible 1.6 nodule on the right-CT of the chest confirms an 8 mm right-sided subpleural pulmonary nodule which will need repeat chest CT in 3 months, also with multiple tree-in-bud opacities consistent with bronchitis or pneumonitis Nitro PRN -Dobutamine stress echocardiogram ordered for risk stratification -Start azithromycin 5 day course for bronchitis DM2: Very Poor control, with severe hyperglycemia here in the 400s, hemoglobin A1c 10.8%, she reports missing several days of her insulin prior to admission -Started Lantus and pre-meal insulin and consult to pharmacy for glycemic control -Needs diabetic education prior to discharge -Is on an JOSH inhibitor for renal protection, needs to be on a statin as well -this can be started upon discharge -Can stop IV fluids HTN: Stable, continue home meds of lisinopril -Aspirin for primary prevention Severe Anxiety/depression/SI: pt was oversedated s/p single dose of ativan in the ED, now with return of labile mood now that she is awake. Psychiatry questioning a mixed presentation, hesitant to increase SSRI as this might be activating if she is manic. Seems to have some grandiose thoughts and possible hallucinations which may have been related to hyperglycemia. Recent hx of hospitalization for SI Continue celexa -Appreciate psychiatry management, continue one-on-one sitter and security searched her bags to ensure her safety -Consider transfer to inpatient psychiatry here if deemed necessary after medical issues improved Heparin for DVT proph Disposition-to inpatient psychiatry admission in 1-2 days after stress echocardiogram completed and hyperglycemia improved
[2016-12-08] MEDS: INSULIN ASPART 100 UNITS/ML 3 ML PEN SC SCH ×7 (00:15→23:37)
[2016-12-08] MEDS ORDERED: ZOLPIDEM TARTRATE 5 MG TAB PO PRN (01:30)
[2016-12-08] MEDS ORDERED: ZOLPIDEM TARTRATE 5 MG TAB ONE (01:47)
[2016-12-08 03:16] VITALS: BP 134/76; PULSE 76; TEMP 36.8; O2SAT 93
[2016-12-08 07:16] VITALS: BP 118/68; PULSE 69; TEMP 36.9; O2SAT 93
[2016-12-08 07:27] LABS: BASO % 0.3 %; BASO ABS # 0.01 K/uL (0-0.2); COMPLETE YES; EOS % 1.2 %; HEMATOCRIT 40.5 % (37-47); LYMPH ABS # 1.59 K/uL (1.2-3.4); MEAN CELL VOLUME 92.9 fL (80-100); MEAN CORPUSCULAR HEMOGLOBIN 31.4 pg (25-34); MEAN CORPUSCULAR HGB CONC 33.8 g/dl (32-36); MEAN PLATELET VOLUME 11.4 fL (7.4-10.4); MONO % 6.6 %; NEUT % 45.9 %; PLATELET COUNT 127 K/uL (130-400); RED BLOOD COUNT 4.36 M/uL (4.2-5.4); WHITE BLOOD COUNT 3.46 K/uL (4.8-10.8)
[2016-12-08 07:56] LABS: CALCIUM 8.8 mg/dl (8.5-10.1); CREATININE 0.64 mg/dl (0.60-1.20); MAGNESIUM 2.2 mg/dl (1.8-2.4); POTASSIUM 4.1 mmol/L (3.5-5.1)
[2016-12-08] MEDS: CITALOPRAM 20 MG TAB PO SCH (08:36)
[2016-12-08] MEDS: ASPIRIN 81 MG ECTAB PO SCH (08:36)
[2016-12-08] MEDS: LISINOPRIL 10 MG TAB PO SCH (08:36)
[2016-12-08] MEDS: AZITHROMYCIN 250 MG TAB PO SCH (08:38)
[2016-12-08] MEDS: RANITIDINE HCL 150 MG TAB PO SCH ×2 (08:38→20:24)
[2016-12-08] MEDS: HEPARIN SOD 5000 UNIT/0.5 ML CARP SQ SCH ×2 (08:38→20:16)
[2016-12-08] MEDS ORDERED: INSULIN GLARGINE SOLOSTAR 100 UNITS/ML 3 ML PEN SC SCH ×5 (09:00→21:00)
[2016-12-08 10:58] VITALS: BP 120/76; PULSE 85; TEMP 36.8; O2SAT 91
--- NOTE | 2016-12-08 11:07 | Pharmacy Progress Note ---
Glycemic Control: Progress Nt Date of Service December 08, 2016. Scope Glycemic Pharmacist consulted for glycemic control and to write orders per [facility] inpatient glycemic control protocol. Objective Accuchecks BSG (last 24hrs): Test 12/07/16 11:41 12/07/16 16:04 12/07/16 20:15 12/08/16 00:09 Bedside Glucose 362 mg/dl (70-90) 195 mg/dl (70-90) 268 mg/dl (70-90) 263 mg/dl (70-90) Test 12/08/16 02:40 12/08/16 07:08 12/08/16 07:25 12/08/16 08:33 Bedside Glucose 263 mg/dl (70-90) 164 mg/dl (70-90) 188 mg/dl (70-90) Random Glucose 160 mg/dl (70-99) Laboratory Data (last 24hrs) HbA1c: Test 12/06/16 07:25 Hemoglobin A1c 10.8 % (4.5-5.6) H Recent Pertinent Medications Outpatient Anti-diabetic Regimen: (unable to confirm) * Levemir 70 units SQ BID * Glipizide 10mg PO BIDM The patient is currently receiving: * Basal insulin: Lantus 40 units every 12 hours * Correctional Insulin: Novolog Correction per scale ACHS Goal Range: Low 120 mg/dL - High 140 mg/dL Correction Factor: 20 mg/dL/unit * Prandial insulin: Per carb ratio of 1 unit per 7 grams CHO consumed * Oral Agents: On hold for admission Risk Factors for Insulin Resistance: * Baseline poor control * Stress/Anxiety * Diet Assessment & Plan ASSESSMENT: Initial: * 66yo T2DM with poor degree of outpatient control per A1c. * Pt reports taking large doses of basal insulin + glipizide but unable to confirm if this is accurate. Referenced external med history and dr dumont without any results. * Unsure if A1c elevated secondary to inadequate dosing vs compliance * Do not feel comfortable resuming reported outpatient dosing at this time as this may induce hypoglycemia if pt non-compliant as an outpatient. * Started with aggressive weight based SQ basal bolus insulin regimen and titrating based on BSG trends 12/08/16: * Pt has received 124 units of insulin over the past 24hrs * 60 units of basal insulin * 64 units of prandial/correctional insulin * BSGs ranging 188 - 369 over the past 24hrs {369 BSG was prior to increased insulin dosing) * Anticipating insulin regimen will need increased for the next 24hrs d/t : * AM Fasting BSG = 188mg/d;, this is above goal therefore Basal insulin needs increased * Post-prandial BSGs are elevated/BSGs rise throughout the day therefore Tighten CF/CR PLAN FOR INPATIENT GLYCEMIC CONTROL: Change/Increase SQ basal bolus insulin regimen based on estimated total daily dose of ~ 150 units (20% dose increase) * Hold outpatient oral diabetes medications * Oral agents are not recommended for inpatient use d/t drug interactions, changing PO intake, and difficulty titrating for acute hyper/hypoglycemia. ADA recommends re-initiating outpatient oral agents 1-2 days prior to discharge if/ when appropriate if they were held on admission. * Basal insulin: * One time increased dose of Lantus 55 units this morning to help reach steady state more quickly, then Q12hrs dosing based on BSG BSG below 140mg/dl --> 30 units Lantus BSG 140-180mg/dl --> 40 units Lantus BSG above 180mg/dl --> 50 units Lantus * Titrate dose daily to maintain fasting BSG in 100-130mg/dl range * of note, pt reports using 70 units BID as an outpatient so this may be underdosing patient initially. * Bolus insulin: * NovoLog per scale ACHS or Q6hrs while NPO. Additional checks + coverage at 0000 & 0400 for severe hyperglycemia. Additional coverage may be needed if basal insulin dosing is underdosed. * Goal Range: Low 120 mg/dL - High 140 mg/dL * Correction Factor: 10 mg/dL/unit * Nutritional / Prandial insulin per carb ratio of 1 unit per 3 grams CHO consumed * Please note that the plan above was derived based on current level of insulin resistance and hospital stress. These recommendations are appropriate for inpatient admission only. Plan of care upon discharge will need to be reassessed to avoid potential outpatient hypo/hyperglycemia. Thank you. Looking ahead to discharge: * 66yo T2DM female with sub-optimal degree of outpatient control on basal insulin + glipizide * Recent A1c = 10.8% on 12/06/16 * Goal A1c ~ 7% based on age and comorbidities * Consider outpatient Diabetes Self-Management Education & Support to increase compliance/adherence to outpatient regimen * Not sure why pt is not on metformin? * Metformin, if not contraindicated and if tolerated, is the preferred initial pharmacological agent for type 2 diabetes. Metformin has a long-standing evidence base for efficacy and safety, is inexpensive, and may reduce risk of cardiovascular events. * B12 supplementation may be necessary with emt intermediate metformin use * May consider adding metformin to regimen to help keep insulin doses low and prevent further weight gain. * Support Patient Self-Management * Healthy Lifestyle (diet, exercise, and smoking cessation) * Disease self-management (SMBG) * Prevention of complications (BP, Lipid goals, Immunizations)
[2016-12-08] MEDS ORDERED: BISMUTH SUBSALICYLATE SUSP PO PRN (13:30)
[2016-12-08 14:49] VITALS: Ht 162.6 cm; Wt 82.6 kg
[2016-12-08 15:17] VITALS: BP 114/76; PULSE 83; TEMP 36.3; O2SAT 94
--- NOTE | 2016-12-08 16:14 | Progress Note ---
Subjective Date of Service: December 08, 2016. Subjective Pt evaluation today including: conversation w/ patient, physical exam, lab review, conversation w/ budget consultant, review of inpatient medication list Pain: no pain today PO Intake: adequate Voiding: no voiding problems patient tearful at times, distraught about her current situation, knows that she needs help several issues ongoing with her son going to alf, her daughter may lose custody of children, she is from her she denies suicidal or homicidal thoughts she was c/o the monitor, does not want stress test, wanted to shower I alleviated some anxiety explaining that we could cancel stress test, could be done back home through [place] could stop tele since not evidence of [place], she could then shower as per her d/c planning, could be difficult, psychiatry is recommending inpatient she would prefer to be done at [facility] she wants to go home to [place] to take care of a few things prior to going inpatient psych needs to be cleared by psychiatry she keeps wanting to see a branner machine tender, explained that no one available today, try for tomorrow Problem List Medical Problems: (1) Anxiety Status: Acute (2) Depression Status: Acute (3) Substernal precordial chest pain Status: Acute (4) Suicidal ideation Status: Acute Review of Systems Psychiatric: + anxiety, + depression symptoms, + insomnia All Other Systems: Reviewed and Negative Medications Current Inpatient Medications Medications (Trade) Dose Ordered Sig/Dione Route Start Time Stop Time Status Last Admin Dose Admin Heparin Sodium (Porcine) (Heparin Sq 5000 Unit/0.5ml) 5,000 unit Q12 SQ 12/06/16 21:00 01/05/17 20:59 12/06/16 21:29 5,000 UNIT Acetaminophen (Tylenol Tab) 650 mg Q4H PRN PO 12/06/16 09:45 01/05/17 09:44 Magnesium Hydroxide (Milk Of Magnesia Susp) 30 ml Q12H PRN PO 12/06/16 09:45 01/05/17 09:44 Ondansetron HCl (Zofran Inj) 4 mg Q6H PRN IV 12/06/16 09:45 01/05/17 09:44 Nitroglycerin (Nitrostat Tab) 0.4 mg UD PRN SL 12/06/16 09:45 01/05/17 09:44 Aspirin (Ecotrin Tab) 81 mg DAILY PO 12/07/16 09:00 01/06/17 08:59 12/08/16 08:36 81 MG Citalopram Hydrobromide (celeXA TAB) 10 mg DAILY PO 12/07/16 09:00 01/06/17 08:59 12/08/16 08:36 10 MG Lisinopril (Zestril Tab) 10 mg DAILY PO 12/07/16 09:00 01/06/17 08:59 12/08/16 08:36 10 MG Ranitidine HCl (zANTac TAB) 150 mg BID PO 12/06/16 21:00 01/05/17 20:59 12/08/16 08:38 150 MG Insulin Aspart (novoLOG ASPART) SLIDING SCALE G... ACHS SC 12/06/16 12:15 01/06/17 12:14 12/08/16 12:30 34 UNITS Glucose (Glucose 40% Gel) 15-30 GRAMS 15 GRAMS... UD PRN PO 12/06/16 12:15 01/05/17 12:14 Glucose (Glucose Chew Tab) 4-8 Tablets 4 Tabl... UD PRN PO 12/06/16 12:15 01/05/17 12:14 Dextrose (Dextrose 50% 50ML Syringe) 25-50ML OF 50% DW IV FOR... UD PRN IV 12/06/16 12:15 01/05/17 12:14 Glucagon (Glucagon Inj) 1 mg UD PRN SQ 12/06/16 12:15 01/05/17 12:14 Miscellaneous (Iv Fluids Completed) 1 ea PRN PRN N/A 12/06/16 14:00 12/06/17 13:59 Hydroxyzine HCl (Vistaril Tab) 25 mg Q6H PRN PO 12/06/16 19:00 01/05/17 18:59 Miscellaneous Information (Consult Glycemic Management Pharmacy) 1 ea UD PRN N/A 12/07/16 13:14 01/06/17 13:13 Ioversol (Optiray 320) 125 ml UD PRN IV 12/07/16 13:00 12/11/16 12:59 Artificial Tears (Artificial Tears) 1 drops PRN PRN OPB 12/07/16 17:00 01/06/17 16:59 Azithromycin (Zithromax Tab) 250 mg QAM PO 12/08/16 09:00 12/15/16 08:59 12/08/16 08:38 250 MG Zolpidem Tartrate (Ambien Tab) 5 mg HS PRN PO 12/08/16 01:30 01/07/17 01:29 Insulin Aspart (novoLOG ASPART) SLIDING SCALE G... 0000,0400 SC 12/09/16 00:00 12/09/16 04:01 Bismuth Subsalicylate (Pepto-Bismol Susp) 30 ml Q6 PRN PO 12/08/16 13:30 01/07/17 13:29 Insulin Glargine (Lantus Solostar Pen) see protocol text BID SC 12/08/16 21:00 01/07/17 20:59 Objective Vital Signs Date Time Temp Pulse Resp B/P Pulse Ox O2 Delivery O2 Flow Rate FiO2 12/08/16 15:17 36.3 83 18 114/76 94 Room Air 12/08/16 12:00 Room Air 12/08/16 10:58 36.8 85 18 120/76 91 12/08/16 08:00 Room Air 12/08/16 07:16 36.9 69 18 118/68 93 12/08/16 04:00 Room Air 12/08/16 03:16 36.8 76 18 134/76 93 Room Air 12/08/16 00:00 Room Air 12/07/16 20:00 Room Air 12/07/16 19:21 36.3 87 18 150/74 97 Room Air Physical Exam General Appearance: WD/WN, no apparent distress ENT: normal ENT inspection, hearing grossly normal, pharynx normal Neck: supple, no adenopathy, no JVD, trachea midline Respiratory/Chest: chest non-tender, lungs clear, normal breath sounds, no respiratory distress, no accessory muscle use Cardiovascular: regular rate, rhythm, no edema, no gallop, no JVD, no murmur Abdomen: normal bowel sounds, non tender, soft, no organomegaly Extremities: normal range of motion, non-tender, normal inspection, no pedal edema, no calf tenderness Neurologic/Psychiatric: wood finisher II-XII nml as tested, no motor/sensory deficits, alert, oriented x 3, + pertinent finding (depressed, tearful, racing thoughts, denies hallucinations) Skin: normal color, warm/dry, no rash Laboratory Results Last 24 Hours Test 12/07/16 20:15 12/08/16 00:09 12/08/16 02:40 12/08/16 07:08 Bedside Glucose 268 mg/dl 263 mg/dl 263 mg/dl White Blood Count 3.46 K/uL Red Blood Count 4.36 M/uL Hemoglobin 13.7 g/dL Hematocrit 40.5 % Mean Corpuscular Volume 92.9 fL Mean Corpuscular Hemoglobin 31.4 pg Mean Corpuscular Hemoglobin Concent 33.8 g/dl Platelet Count 127 K/uL Mean Platelet Volume 11.4 fL Neutrophils (%) (Auto) 45.9 % Lymphocytes (%) (Auto) 46.0 % Monocytes (%) (Auto) 6.6 % Eosinophils (%) (Auto) 1.2 % Basophils (%) (Auto) 0.3 % Neutrophils # (Auto) 1.59 K/uL Lymphocytes # (Auto) 1.59 K/uL Monocytes # (Auto) 0.23 K/uL Eosinophils # (Auto) 0.04 K/uL Basophils # (Auto) 0.01 K/uL RDW Standard Deviation 43.9 fL RDW Coefficient of Variation 12.8 % Immature Granulocyte % (Auto) 0.0 % Immature Granulocyte # (Auto) 0.00 K/uL Sodium Level 142 mmol/L Potassium Level 4.1 mmol/L Chloride Level 106 mmol/L Carbon Dioxide Level 32 mmol/L Anion Gap 4.0 mmol/L Blood Urea Nitrogen 16 mg/dl Creatinine 0.64 mg/dl Est Creatinine Clear Calc Drug Dose 92.4 ml/min Estimated GFR () 109.3 Estimated GFR (Non- 94.3 BUN/Creatinine Ratio 25.0 Random Glucose 160 mg/dl Calcium Level 8.8 mg/dl Magnesium Level 2.2 mg/dl Test 12/08/16 07:25 12/08/16 08:33 12/08/16 11:11 Bedside Glucose 164 mg/dl 188 mg/dl 264 mg/dl Assessment and Plan 66 y/o F who was admitted for observation on 12/06 for chest pain and SI, started to have panic attack from dealing with her son's pending incarceration for unknown crime in addition to multiple social stressors (, strained relationships with children, low income) Chest pain: Likely stress/anxiety Trop neg x3 No evidence of ischemia on EKG PRP, CBC, TSH WNL Utox and UA neg with urine cx pending CXR with possible 1.6 nodule on the right-CT of the chest confirms an 8 mm right-sided subpleural pulmonary nodule which will need repeat chest CT in 3 months, also with multiple tree-in-bud opacities consistent with bronchitis or pneumonitis no plans for stress echo during admission, she can have a stress test back home with the [place] d/c tele monitor DM2: Very Poor control, with severe hyperglycemia here in the 400s, hemoglobin A1c 10.8%, she reports missing several days of her insulin prior to admission -Started Lantus and pre-meal insulin and consult to pharmacy for glycemic control -Needs diabetic education prior to discharge -Is on an JOSH inhibitor for renal protection, needs to be on a statin as well -this can be started upon discharge -Can stop IV fluids - sugars better controlled currently HTN: Stable, continue home meds of lisinopril -Aspirin for primary prevention Severe Anxiety/depression/SI: pt was oversedated s/p single dose of ativan in the ED, now with return of labile mood now that she is awake. Psychiatry questioning a mixed presentation, hesitant to increase SSRI as this might be activating if she is manic. Seems to have some grandiose thoughts and possible hallucinations which may have been related to hyperglycemia. Recent hx of hospitalization for SI Continue celexa -Appreciate psychiatry management, continue one-on-one sitter and security searched her bags to ensure her safety -recommending inpatient psych, trying for [facility] site tomorrow Heparin for DVT proph Disposition- try for inpatient psych tomorrow
--- NOTE | 2016-12-08 16:46 | Medical Student: [facility] ---
Med Student Progress Note Date of Service December 08, 2016. Subjective Pt evaluation today including: conversation w/ patient Pain: 0 PO Intake: good Voiding: no voiding problems Ms Valentina Sanchez is a 66 yo from [place] admitted two days ago on her way back to [place] from [place] following an acute panic attack with accompanying substernal chest pain. She found out her son was going to be imprisoned due to a sexual assault charge and had a meltdown. Since the ED, she has not had recurrent chest pain. She notes high anxiety about uncertainty of her son's situation. She discussed in detail other family concerns, including possibility of her daughter losing her children. She notes copious diarrhea this morning, which she attributes to ongoing fecal incontinence and stress of situation. She estimates 15 bowel movements from awakening to 13:00. She also notes frustration with having to wear tele monitor. We discussed her statement of suicidal ideation three months ago during which time she bought a gun. [facility] now [facility], and she has undergone inpatient psych treatment since then. She is open to inpatient therapy again, but wants it to be at the [facility] , preferably in [place]. She is often emotional during conversation. She desires to speak to a mender hand or grader marker. Objective Vital Signs Date Time Temp Pulse Resp B/P Pulse Ox O2 Delivery O2 Flow Rate FiO2 12/08/16 15:17 36.3 83 18 114/76 94 Room Air 12/08/16 12:00 Room Air 12/08/16 10:58 36.8 85 18 120/76 91 12/08/16 08:00 Room Air 12/08/16 07:16 36.9 69 18 118/68 93 12/08/16 04:00 Room Air 12/08/16 03:16 36.8 76 18 134/76 93 Room Air 12/08/16 00:00 Room Air 12/07/16 20:00 Room Air 12/07/16 19:21 36.3 87 18 150/74 97 Room Air Physical Exam Comments: Vitals: See above. Stable. General: WD/WN, obese female appearing older than her stated age. Often emotional. HEENT: NCAT, EOMI, PERRLA. No anterior or posterior cervical lymphadenopathy. No tenderness to palpation of frontal or maxillary sinuses. CV: S1, S2. No MRG, RRR. Pulses equal and intact bilaterally. Pulm: Lungs clear to auscultation in upper and lower lobes bilaterally. Abdomen: Multiple small bruises from insulin injections. Small lumps felt around bruises. Active bowel sounds. Some tenderness around bruises. No deep tenderness or rebound. No HSM. Psych: AOx3. Emotionally labile. Denies SI/HI. Some anger and fear noted in speech. Laboratory Results Last 24 Hours Test 12/07/16 20:15 12/08/16 00:09 12/08/16 02:40 12/08/16 07:08 Bedside Glucose 268 mg/dl 263 mg/dl 263 mg/dl White Blood Count 3.46 K/uL Red Blood Count 4.36 M/uL Hemoglobin 13.7 g/dL Hematocrit 40.5 % Mean Corpuscular Volume 92.9 fL Mean Corpuscular Hemoglobin 31.4 pg Mean Corpuscular Hemoglobin Concent 33.8 g/dl Platelet Count 127 K/uL Mean Platelet Volume 11.4 fL Neutrophils (%) (Auto) 45.9 % Lymphocytes (%) (Auto) 46.0 % Monocytes (%) (Auto) 6.6 % Eosinophils (%) (Auto) 1.2 % Basophils (%) (Auto) 0.3 % Neutrophils # (Auto) 1.59 K/uL Lymphocytes # (Auto) 1.59 K/uL Monocytes # (Auto) 0.23 K/uL Eosinophils # (Auto) 0.04 K/uL Basophils # (Auto) 0.01 K/uL RDW Standard Deviation 43.9 fL RDW Coefficient of Variation 12.8 % Immature Granulocyte % (Auto) 0.0 % Immature Granulocyte # (Auto) 0.00 K/uL Sodium Level 142 mmol/L Potassium Level 4.1 mmol/L Chloride Level 106 mmol/L Carbon Dioxide Level 32 mmol/L Anion Gap 4.0 mmol/L Blood Urea Nitrogen 16 mg/dl Creatinine 0.64 mg/dl Est Creatinine Clear Calc Drug Dose 92.4 ml/min Estimated GFR () 109.3 Estimated GFR (Non- 94.3 BUN/Creatinine Ratio 25.0 Random Glucose 160 mg/dl Calcium Level 8.8 mg/dl Magnesium Level 2.2 mg/dl Test 12/08/16 07:25 12/08/16 08:33 12/08/16 11:11 Bedside Glucose 164 mg/dl 188 mg/dl 264 mg/dl Assessment and Plan Assessment and Plan: Ms Valentina Sanchez is a 66 yo woman on hospital day 2 for chest pain rule out, and acute anxiety attack with recent history of suicidal ideation. Individual assessment and plan are as follows: 1. Chest pain: Acute, likely secondary to anxiety. Trops, ECG, negative. No electrolyte abnormalities. TSH normal. 2. Diarrhea: Started this morning. Likely secondary to ongoing fecal incontinence exacerbated by stress. No need for c. diff at this time, although she did start azithromycin yesterday for bronchitis. Will give Peto Bismol per patient request. 3. Anxiety: Chronic, acutely elevated due to son going to senior living, stressful situation seeing grandson's graduation in [place], etc. Psych consulted and recommend inpatient treatment. Patient prefers this to be at [facility], and there are no open beds here. Psych liaison will arrange tomorrow morning. Will continue citalopram 10mg qd, Ambien 5mg qd for sleep. 4. Suicidal Ideation: Statement was 3 months ago. No gun at home. Patient has since been through inpatient psych, notes she is more positive now. All of "hell " she's been through was to prepare her for supporting son or grandkids. 5. Diabetes Mellitus II: Poorly controlled. On SS insulin here. Will need to follow up with PCP in [facility], as patient has been poorly complaint in the past. 6. Hypertension: Continue lisinopril 10mg qd. 7. Bronchitis: Multiple opacities seen on CT. Need for f/u CT in 3-6 months. Day 2 azithromycin. Likely viral, but will continue 5 day course. 7. DVT Proph: Heparin 5000U Q8 8. Dispo: Hopeful discharge to inpatient [facility] psych tomorrow. Psych liaison working on transfer details. No need for tele, maintain 1:1 pending psych eval. Continued [facility] stay due to: other ([id number]) Discharge planning: other ([facility] for inpatient rehab tomorrow, ideally [facility])
--- NOTE | 2016-12-08 16:53 | Discharge Instructions ---
Discharge Instructions Date of Service December 08, 2016. Admission Reason for Admission: Substernal Precordial Chest Pain Discharge Discharge Diagnosis / Problem: Chest pain, panic attack, anxiety Discharge Goals Goal(s): Decrease discomfort, Improve function, Therapeutic intervention (seek psychiatric therapy) Activity Recommendations Activity Limitations: resume your previous activity Lifting Limitations: none Exercise/Sports Limitations: as tolerated . Instructions / Follow-Up Instructions / Follow-Up Medications: no changes - use Pepto Bismol as needed for diarrhea - ibuprofen as needed for headache Chest pain: normal EKG, negative troponin, negative dobutamine stress echocardiogram on 12/09 thus, your pain was related to panic attack, no evidence of heart related pain FOLLOW UP - Dr Gross on Thursday at 1pm as scheduled over the phone Current Hospital Diet Patient's current hospital diet: Diabetes Type 2 Diet, AHA Diet (Heart Healthy) Discharge Diet Recommended Diet: AHA Diet (Heart Healthy), Diabetes Type 2 Diet Pending Studies Studies pending at discharge: no Laboratory Results Hemoglobin A1c Test 12/06/16 07:25 Range/Units Estimated Average Glucose 263 mg/dl Hemoglobin A1c 10.8 H 4.5-5.6 % Lipid Panel Test 12/06/16 07:25 Range/Units Triglycerides Level 160 H 0-150 mg/dl Cholesterol Level 102 0-200 mg/dl HDL Cholesterol 51 mg/dl Cholesterol/HDL Ratio 2.0 LDL Cholesterol, Calculated 19 mg/dl Medical Emergencies . Who to Call and When: Medical Emergencies: If at any time you feel your situation is an emergency, please call 911 immediately. . Non-Emergent Contact Non-Emergency issues call your: Primary Care Provider, Specialist (Psychologist , psychiatrist) . . "Provider Documentation" section prepared by Ryan Busch. . VTE Core Measure Inpt VTE Proph given/why not?: Unfractionated heparin SQ [place] Drug Monitoring Program Search Results: no issues identified
--- NOTE | 2016-12-08 17:28 | Psychiatric Progress Notes ---
Psychiatric Progress Note Date of Service December 08, 2016. Notes Asked to see the patient after an episode of agitation. The patient has refused the recommended stress test and is wanting to leave. She is upset that there is a 1:1 attendant in her room, and equally upset that the 1:1 attending to her roommate refused to turn the TV off last night preventing her from sleeping. She reviews her current stressors (son going to group home, grandchildren in [place], homelessness). She denies current SI, and says that she is forward focused, wanting to return to [place] where she has established mental health and medical treatment through the [facility]. She wants to get her life back on track in the event she needs to take custody of her grandchildren. She denies SI/HI, denies aud/vis hallucinations. Although hyperverbal, she denies racing thoughts, high energy or pleasure seeking behaviors. We talk about our concerns that she seems labile, irritable and not making good decisions. We discuss a compromise: since she is not suicidal, we will DC the 1:1. Dr. Busch has talked with the charge nurse about a possible room change so that she can sleep. She agrees to have any recommended medical testing tomorrow, and we will work toward getting her to the bus station to resume her bus travel back to [place], on Thursday morning. She has also agreed to allow us to talk with her psychiatrist in [place] tomorrow to confirm that she has treatment in place. PLAN: At this time, I don not think that she requires inpatient mental healthy treatment. She is oriented, denying SI and has a plan in place to return to [place] and her current providers. I will ask the liaison nurse to have her sign an GIOVANNI to the [facility] and make contact tomorrow to confirm her treatment and appts.
[2016-12-09] VITALS: BP 142/79; PULSE 84; TEMP 36.9; O2SAT 94
[2016-12-09] MEDS: INSULIN ASPART 100 UNITS/ML 3 ML PEN SC SCH ×6 (04:09→22:20)
[2016-12-09 07:41] VITALS: BP 107/68; PULSE 75; TEMP 36.8; O2SAT 98
[2016-12-09] MEDS: CITALOPRAM 20 MG TAB PO SCH (08:18)
[2016-12-09] MEDS: RANITIDINE HCL 150 MG TAB PO SCH ×2 (08:18→20:49)
[2016-12-09] MEDS: ASPIRIN 81 MG ECTAB PO SCH (08:18)
[2016-12-09] MEDS: AZITHROMYCIN 250 MG TAB PO SCH (08:19)
[2016-12-09] MEDS ORDERED: INSULIN GLARGINE SOLOSTAR 100 UNITS/ML 3 ML PEN SC SCH ×2 (09:00→21:00)
[2016-12-09] MEDS: HEPARIN SOD 5000 UNIT/0.5 ML CARP SQ SCH ×2 (09:00→20:43)
[2016-12-09] MEDS ORDERED: DOBUTamine HCL 12.5 MG/ML 20 ML VIAL ONE (09:54)
[2016-12-09] MEDS ORDERED: METOPROLOL TARTRATE 1 MG/ML VIAL ONE (09:55)
[2016-12-09] MEDS ORDERED: ATROPINE SULFATE 0.1 MG/ML 5ML SYR ONE (09:55)
[2016-12-09] MEDS: LISINOPRIL 10 MG TAB PO SCH (11:30)
--- NOTE | 2016-12-09 13:44 | Pharmacy Progress Note ---
Glycemic Control: Progress Nt Date of Service December 09, 2016. Scope Glycemic Pharmacist consulted by Dr Caldwell on 12/07/16 for glycemic control and to write orders per [facility] inpatient glycemic control protocol. Objective Accuchecks BSG (last 24hrs): Test 12/08/16 20:01 12/08/16 23:30 12/09/16 01:55 12/09/16 04:02 Bedside Glucose 176 mg/dl (70-90) 320 mg/dl (70-90) 349 mg/dl (70-90) 285 mg/dl (70-90) Test 12/09/16 07:35 12/09/16 11:00 Bedside Glucose 134 mg/dl (70-90) 159 mg/dl (70-90) HbA1c: Test 12/06/16 07:25 Hemoglobin A1c 10.8 % (4.5-5.6) H Recent Pertinent Medications Outpatient Anti-diabetic Regimen: (unable to confirm) * Levemir 70 units SQ BID * Glipizide 10mg PO BIDM The patient is currently receiving: * Basal insulin: Lantus 30-50 units every 12 hours, based upon BSG 12/07 Received 60 units total 12/08 Received 95 units total * Correctional Insulin: Novolog Correction per scale ACHS + 00,04 Goal Range: Low 120 mg/dL - High 140 mg/dL Correction Factor: 10 mg/dL/unit * Prandial insulin: Per carb ratio of 1 unit per 3 grams CHO consumed * Oral Agents: On hold for admission Risk Factors for Insulin Resistance: * Baseline poor control * Infection * Stress/Anxiety * Diet Assessment & Plan ASSESSMENT: 12/08/16: * Pt has received 124 units of insulin over the past 24hrs * 60 units of basal insulin * 64 units of prandial/correctional insulin * BSGs ranging 188 - 369 over the past 24hrs {369 BSG was prior to increased insulin dosing) * Anticipating insulin regimen will need increased for the next 24hrs d/t : * AM Fasting BSG = 188mg/d;, this is above goal therefore Basal insulin needs increased * Post-prandial BSGs are elevated/BSGs rise throughout the day therefore Tighten CF/CR 12/09/16 * Patient received 192 units of insulin yesterday with BSGs ranging from 134- 320 in the past 24 hrs * She refused her evening coverage of Novolog last night, most likely causing the highs overnight * Her Lantus for this AM was changed to a set dose of 40 units (not based on the BSG) and pre-lunch BSG looks great * Will plan to change Lantus to a set dose of 40 units BID - based upon est TDD of ~150 units; will continue same CF/CR for now PLAN FOR INPATIENT GLYCEMIC CONTROL: * Change Lantus to set dose of 40 units BID * Continue Novolog ACHS only - no overnight accuchecks * Goal 120-140 * CF 10 * CR 3 RECOMMENDATIONS FOR DISCHARGE: * please see note from 12/08 * Please note that the plan above was derived based on current level of insulin resistance and hospital stress. These recommendations are appropriate for inpatient admission only. Plan of care upon discharge will need to be reassessed to avoid potential outpatient hypo/hyperglycemia. Thank you.
[2016-12-09 15:28] VITALS: BP 98/61; PULSE 69; TEMP 36.4; O2SAT 95
[2016-12-09] MEDS ORDERED: IBUPROFEN 600 MG TAB PO PRN (16:15)
--- NOTE | 2016-12-09 16:15 | DOBUTAMINE ECHO ---
*NOTICE TO RECEIVING CONSTITUTION PARTY AGENCY This information is strictly Confidential and protected under [place] law. [place] law prohibits you from making any further disclosure of this information unless further disclosure is expressly permitted by the written consent of the person to whom it pertains or is authorized by law. A general authorization for the release of medical or other information is not sufficient for this purpose. Hospital accepts no responsibility if the information is made available to any other person, INCLUDING THE PATIENT. Interpretation Summary * Name: ANG URRUTIA Study Date: 12/09/2016 08:30 AM BP: 114/70 mmHg * Patient Location: [facility]\S\N275\S\2 HR: 76 * : 1950 (M/d/yyyy) Gender: Female Height: 64 in * Age: 66 yrs Ethnicity: CA Weight: 182 lb * Ordering Physician: Kerry Caldwell * Referring Physician: Self, Referred * Performed By: Bobbi Solomon RDCS * * Reason For Study: Chest pain * BSA: 1.9 m2 * -- Conclusions -- * Negative stress echocardiogram for myocardial ischemia at 96% maximum predicted heart rate. * No dobutamine induced chest pain. * No ECG changes. * Baseline echocardiogram notes normal left ventricular systolic function. Procedure Details * DOBUTAMINE ECHO, CPT#[id number] * ECHO DOPPLER, CPT #[id number] * ECHO COLOR FLOW, CPT #[id number] * A contrast injection of Definity was performed to improve assessment of LV function. * Contrast was injected into an intravenous site in the right arm. * One vial of Definity ultrasound contrast was diluted in normal saline to a total volume of 10 ml. A total of '7' ml of solution was administered during imaging. * Lot # [id number] of Definity utilized for procedure. * Expiration date 1 DEC 28. * The attending nurse who injected the contrast agent was Terence Mullins RN. Left Ventricle * The left ventricle is normal in size. * There is mild concentric left ventricular hypertrophy. * Ejection Fraction = 65-70%. * Left ventricular systolic function is normal. * Resting wall motion: Normal. Stress wall motion: Appropriate increase in Left ventricular systolic function and decrease in cavity size. No stress induced segmental wall motion abnormalities. Right Ventricle * The right ventricle is grossly normal size. * The right ventricular systolic function is normal as assessed by tricuspid annular plane systolic excursion (TAPSE) (normal >1.5 cm). Atria * The left atrial size is normal. * Right atrium is small. * There is no evidence of atrial septal defect, but resolution does not allow assessment for a patent foramen ovale. Mitral Valve * The mitral valve is grossly normal. * There is no mitral valve stenosis. * Significant mitral regurgitation is absent. Tricuspid Valve * The tricuspid valve is not well visualized, but is grossly normal. * There is no tricuspid stenosis. * Significant tricuspid regurgitation is absent. Aortic Valve * The aortic valve is not well visualized. * The aortic valve opens well. * No hemodynamically significant valvular aortic stenosis. * There is no significant aortic regurgitation. Pulmonic Valve * The pulmonary valve is not well seen, but the Doppler examination is normal without significant regurgitation or stenosis. Great Vessels * The aortic root is normal size. * The pulmonary is not well visualized. Pericardium * There is no pericardial effusion. Stress Parameters * Normal baseline electrocardiogram. * Stress ECG: No ST changes. No arrhythmias. * The stress portion of this study was personally supervised by the undersigned interpreting physician. * Rest heart rate was '76' BPM. * Rest blood pressure was '114/70' * Maximum heart rate achieved was 151 bpm. * Maximum heart rate was 96 % of maximum age-predicted heart rate. * Maximum blood pressure was '162/65' * Maximum Dobutamine infusion rate was '20' mcg/kg/min. * Dobutamine infusion was terminated due to achieving target heart rate * A total of 0.5 mg of intravenous Atropine was used to supplement Dobutamine for heart rate response. * A total of 5 mg of IV Metoprolol was administered to reverse Dobutamine-induced tachycardia. * The patient did not exhibit any symptoms during drug infusion. MMode 2D Measurements and Calculations IVSd 0.79 cm LVIDd 4.0 cm LVIDs 2.4 cm LVPWd 0.70 cm IVS/LVPW 1.1 FS 40.6 % EDV(Teich) 68.5 ml ESV(Teich) 19.2 ml EF(Teich) 72.0 % EDV(cubed) 62.3 ml ESV(cubed) 13.0 ml EF(cubed) 79.1 % LV mass(C)d 83.9 grams LV mass(C)dI 44.6 grams/m\S\2 SV(Teich) 49.3 ml SI(Teich) 26.3 ml/m\S\2 SV(cubed) 49.3 ml SI(cubed) 26.2 ml/m\S\2 Ao root diam 2.6 cm Ao root area 5.5 cm\S\2 ACS 1.5 cm LA dimension 2.9 cm asc Aorta Diam 2.6 cm LA/Ao 1.1 LVOT diam 1.8 cm LVOT area 2.7 cm\S\2 LVAd ap4 26.5 cm\S\2 LVLd ap4 7.7 cm EDV(MOD-sp4) 76.0 ml EDV(sp4-el) 77.5 ml LVAs ap4 12.5 cm\S\2 LVLs ap4 5.9 cm ESV(MOD-sp4) 22.3 ml ESV(sp4-el) 22.5 ml EF(MOD-sp4) 70.7 % EF(sp4-el) 70.9 % LVAd ap2 21.9 cm\S\2 LVLd ap2 6.6 cm EDV(MOD-sp2) 61.1 ml EDV(sp2-el) 61.3 ml LVAs ap2 10.0 cm\S\2 LVLs ap2 4.9 cm ESV(MOD-sp2) 17.5 ml ESV(sp2-el) 17.5 ml EF(MOD-sp2) 71.3 % EF(sp2-el) 71.5 % LVLd %diff -16.07 % EDV(MOD-bp) 73.9 ml LVLs %diff -20.69 % ESV(MOD-bp) 21.8 ml EF(MOD-bp) 70.5 % SV(MOD-sp4) 53.7 ml SI(MOD-sp4) 28.6 ml/m\S\2 SV(MOD-sp2) 43.6 ml SI(MOD-sp2) 23.2 ml/m\S\2 SV(MOD-bp) 52.1 ml SI(MOD-bp) 27.7 ml/m\S\2 SV(sp4-el) 55.0 ml SI(sp4-el) 29.3 ml/m\S\2 SV(sp2-el) 43.9 ml SI(sp2-el) 23.3 ml/m\S\2 Doppler Measurements and Calculations MV E max talia 58.7 cm/sec MV A max talia 95.6 cm/sec MV E/A 0.61 MV dec time 0.31 sec Ao V2 max 150.7 cm/sec Ao max PG 9.1 mmHg Ao max PG (full) 5.0 mmHg MAXIMILIAN(V,A) 1.8 cm\S\2 MAXIMILIAN(V,D) 1.8 cm\S\2 LV V1 max PG 4.0 mmHg LV V1 max 100.4 cm/sec PA V2 max 90.9 cm/sec PA max PG 3.3 mmHg PA acc slope 598.4 cm/sec\S\2 PA acc time 0.11 sec PA pr(Accel) 28.3 mmHg
--- NOTE | 2016-12-09 16:21 | Medical Student: [facility] ---
Med Student Progress Note Date of Service December 09, 2016. Subjective Pt evaluation today including: conversation w/ patient Pain: 0 PO Intake: good Voiding: no voiding problems Ms Valentina Sanchez is a 66 yo female who presented to our ED two days ago while on her way back from [place] to [place]. She had a panic attack and breakdown and was brought to our ED with shortness of breath and chest pain. Her medical eval ruled out IL, and she has had persistent but improving anxiety about her social situation while here. She is doing better today. Mood is less labile and she states some positive thoughts about the whole situation. She is ready to get back to [place] to put some order back in her life. She denies suicidal ideation. She has persistent but better controlled anxiety. She continues to have some diarrhea but her bowels have calmed down since yesterday. She has purchased a bus ticket leaving tonight at 1:40 from [facility] [employer] [facility] to go to [place], and from [place] back to [place]. She feels that the night bus will be more reasonable and hopes to be able to sleep. Review of Systems Constitutional: No problem reported Eyes: No problem reported ENT: No problem reported Respiratory: No problem reported Cardiac: No problem reported Abdomen: No problem reported Musculoskeletal: No problem reported Female : No problem reported Neurologic: No problem reported Psychiatric: + anxiety (situational) Heme: No problem reported Endo: No problem reported Skin: No problem reported Objective Vital Signs Date Time Temp Pulse Resp B/P Pulse Ox O2 Delivery O2 Flow Rate FiO2 12/09/16 16:00 Room Air 12/09/16 15:28 36.4 69 16 98/61 95 Room Air 12/09/16 08:00 Room Air 12/09/16 07:41 36.8 75 18 107/68 98 Room Air 12/09/16 00:00 36.9 84 18 142/79 94 Room Air Physical Exam Comments: Vitals: See above. Stable. General: WD/WN, female appearing older than her stated age. Often emotional but less today. HEENT: NCAT, EOMI, PERRLA. No anterior or posterior cervical lymphadenopathy. CV: S1, S2. No MRG, RRR. Pulm: Lungs clear to auscultation in upper and lower lobes bilaterally. Abdomen: Multiple small bruises from insulin injections. Small lumps felt around bruises. Active bowel sounds. Some tenderness around bruises. No deep tenderness or rebound. No HSM. Psych: AOx3. Anxious but less emotional lability. Denies SI/HI. Some anger and fear noted in speech this morning but more stable. Laboratory Results Last 24 Hours Test 12/08/16 20:01 12/08/16 23:30 12/09/16 01:55 12/09/16 04:02 Bedside Glucose 176 mg/dl 320 mg/dl 349 mg/dl 285 mg/dl Test 12/09/16 07:35 12/09/16 11:00 Bedside Glucose 134 mg/dl 159 mg/dl Assessment and Plan Assessment and Plan: Ms Valentina Sanchez is a 66 yo woman on hospital day 3 for chest pain rule out, and acute anxiety attack with recent history of suicidal ideation. She has been evaluated by psych and cardiology and is cleared for discharge. Individual assessment and plan are as follows: 1. Chest pain: Acute, likely secondary to anxiety. Trops, ECG, negative. No electrolyte abnormalities. TSH normal. Stress test normal today. 2. Diarrhea: Started yesterday. Likely secondary to ongoing fecal incontinence exacerbated by stress.Improved with pepto bismol. Not as frequent today. 3. Anxiety: Chronic, acutely elevated due to son going to residential, stressful situation seeing grandson's graduation in [place], etc. Psych consulted and initially recommend inpatient treatment, later recommended close followup with psychiatrist/therapist in [place]. Spoke with home therapist today, who is agreeable to see her as outpatient. Appointment is scheduled for Thursday at 1: 00. Will continue citalopram 10mg qd, Ambien 5mg qd for sleep. 4. Suicidal Ideation: Statement was 3 months ago. No gun at home. Patient has since been through inpatient psych, notes she is more positive now. Seeing positive side of situation today. 5. Diabetes Mellitus II: Poorly controlled. On SS insulin here. Will need to follow up with PCP in [facility], as patient has been poorly complaint in the past. 6. Hypertension: Continue lisinopril 10mg qd. 7. Bronchitis: Multiple opacities seen on CT. Need for f/u CT in 3-6 months. Two days of azithromycin, d/c due to improved symptoms and likely viral etiology. 7. DVT Proph: Ambulation. 8. Dispo: D/C with taxi to [facility]. Has bus ticket for 1:40 tonight [facility] [place]. Patient has followup appointment with therapist on Thursday at 1:00. Psych agreeable to plan. Discharge planning: other ([facility] [place] [facility]. Leave tonight at midnight via Taxi to [facility])
--- NOTE | 2016-12-09 16:43 | Discharge Summary ---
Discharge Summary Date of Service December 09, 2016. Discharge Summary Admission Date: December 06, 2016 at 09:44 Discharge Date: December 09, 2016 Discharge Disposition: Home Principal Diagnosis: Panic attack, chest pain and dyspnea Problems/Secondary Diagnoses: Anxiety/depression h/o suicidal ideation DM, insulin dependent Diarrhea Procedures: Dobutamine stress echocardiogram - negative for ischemia Consultations: Psychiatry Medication Reconciliation Continued Medications: Aspirin (Aspir-81) 81 Mg Tab 1 TAB PO DAILY for 90 Days, #90 TAB 3 Refills Citalopram Hydrobromide (Celexa) 10 Mg Tab 10 MG PO DAILY, TAB Glipizide (Glucotrol) 10 Mg Tab 10 MG PO BID, TAB Insulin Detemir (Levemir) 100 Units/Ml Inj 70 UNITS SQ BID Lisinopril (Zestril) 10 Mg Tab 10 MG PO DAILY, TAB Ranitidine HCl (Ranitidine [address]) 150 Mg Tab 1 TAB PO BID Discharge Exam Patient much calmer today, slept well last night. Had dobutamine echo today, no signs of ischemia, tolerated well. Talked with her psychologist Dr. Gross over the phone today. He said that Valentina has a lot of support at home and she is always pro-active at seeking out resources. He sees her once a week and has been doing this for a long time, they have dealt with a lot of her recent issues. He was able to schedule her for a follow up appointment on Tuesday 12/12 at 1pm and Valentina said that would work for her. As far as getting home, we were able to get her a ticket for [facility] at 1:40am tonight and secured a taxi voucher for midnight tonight to take her to the bus station. She agreed with this plan. Review of Systems: Constitutional: No chills, No fatigue, No fever, No problem reported, No sweats, No weakness, No weight loss Eyes: No diplopia, No discharge, No eye pain, No problem reported, No redness, No worsening of vision ENT: No dental problems, No hearing loss, No nasal symptoms, No problem reported, No sore throat, No tinnitus, No trouble swallowing, No unusual epistaxis Respiratory: No cough, No dyspnea at rest, No dyspnea on exertion, No hemoptysis, No problem reported, No shortness of breath, No sputum, No wheezing Cardiovascular: No PND, No chest pain, No claudication, No edema, No orthopnea, No palpitations, No problem reported Abdomen: + diarrhea (mild, improving), No GI bleeding, No constipation, No nausea, No pain, No problem reported, No vomiting Musculoskeletal: No calf pain, No joint pain, No muscle pain, No problem reported, No swelling Genitourinary - Female: No dysuria, No hematuria, No urinary frequency, No urinary incontinence, No urinary retention, No urinary urgency Neurologic: No balance problems, No memory loss, No numbness/tingling, No paralysis, No problem reported, No vertigo, No weakness Psychiatric: + anxiety, + depression symptoms, No anhedonism, No insomnia, No substance abuse Endocrine: No excessive thirst, No excessive urination, No fatigue, No problem reported Hematologic / Lymphatic: No abnormal bleeding/bruising, No clotting problems , No night sweats, No problem reported, No swollen lymph nodes Integumentary: No bleeding, No color change, No itch, No new/changing skin lesions, No problem reported, No rash Physical Exam: General Appearance: WD/WN, no apparent distress Eyes: normal inspection, EOMI, sclerae normal ENT: normal ENT inspection, hearing grossly normal, pharynx normal Neck: supple, no adenopathy, no JVD, trachea midline Respiratory/Chest: chest non-tender, lungs clear, normal breath sounds, no respiratory distress, no accessory muscle use Cardiovascular: regular rate, rhythm, no edema, no gallop, no JVD, no murmur , normal peripheral pulses Abdomen / GI: normal bowel sounds, non tender, soft, no organomegaly Extremities: normal inspection, no calf tenderness, normal capillary refill , no pedal edema, normal range of motion, pelvis stable Neurologic/Psychiatric: 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, no motor/sensory deficits , alert, normal reflexes, oriented x 3, + pertinent finding (anxious about leaving, but more calm, no tears today ) Skin: normal color, warm/dry, no rash Hospital Course 66 y/o F who was admitted for observation on 12/06 for chest pain and SI, started to have panic attack from dealing with her son's pending incarceration for unknown crime in addition to multiple social stressors (, strained relationships with children, low income) Chest pain: Likely stress/anxiety Trop neg x3 No evidence of ischemia on EKG PRP, CBC, TSH WNL Utox and UA neg with urine cx pending CXR with possible 1.6 nodule on the right-CT of the chest confirms an 8 mm right-sided subpleural pulmonary nodule which will need repeat chest CT in 3 months, also with multiple tree-in-bud opacities consistent with bronchitis or pneumonitis dobutamine stress echocardiogram on 12/09, negative for ischemia will need repeat CT chest in 3 months follow up on 8mm nodule DM2: Very Poor control, with severe hyperglycemia here in the 400s, hemoglobin A1c 10.8%, she reports missing several days of her insulin prior to admission -Started Lantus and pre-meal insulin and consult to pharmacy for glycemic control -Needs diabetic education prior to discharge -Is on an JOSH inhibitor for renal protection, needs to be on a statin as well -this can be started upon discharge -Can stop IV fluids - sugars better controlled currently, she will resume her home regimen HTN: Stable, continue home meds of lisinopril -Aspirin for primary prevention Severe Anxiety/depression: pt was oversedated s/p single dose of ativan in the ED, when she awoke she admitted to severe depression/anxiety, difficult time dealing with the fact that her son is going to detention for "a terrible crime" she admitted to suicidal ideations in the past several months, she used to be in a dark place but currently not suicidal initially placed on one-on-one for her safety but then stopped evaluated by psychiatry, recommended that she could return home with close follow up for mental health spoke with her psychologist Dr. Gross who sees the patient typically once a week he and patient will meet on Thursday at 1pm Heparin for DVT proph Disposition- d/c home with close psychological and psychiatric follow up Total Time Spent: Greater than 30 minutes This includes examination of the patient, discharge planning, medication reconciliation, and communication with other providers. Discharge Instructions Please refer to the electronic Patient Visit Report (Discharge Instructions) for additional information. Follow-Up Dr. Gross on Thursday, 1pm, back home in [facility]
[2016-12-09 21:01] VITALS: BP 98/61; PULSE 69; TEMP 36.4; O2SAT 95
[2016-12-09] MEDS ORDERED: INSULIN HUMAN REGULAR PER UNIT 10 UNITS in SYRINGE 9.9 ML IV SCH (21:15)
== END 2016-12-09 23:57 | disposition home or self-care (01) ==
LOC: ENRESERVTM → ENRESERVDT → EDBD 07:06 → C.EDB 07:06 → C.MED 09:44
PROVIDERS: ADMIT Family Medicine; ATTEND Internal Medicine
DX: F41.0 Panic disorder [episodic paroxysmal anxiety] (principal); R07.9 Chest pain, unspecified; R06.00 Dyspnea, unspecified; F32.9 Major depressive disorder, single episode, unspecified; Z86.59 Personal history of other mental and behavioral disorders; E11.9 Type 2 diabetes mellitus without complications; R19.7 Diarrhea, unspecified; Z79.82 Long term (current) use of aspirin; Z79.4 Long term (current) use of insulin